=== PATIENT | male | born 1975 | race Caucasian/White ===

== ENCOUNTER 2017-04-20 14:23 | Emergency (ER) | payer SELFPAY ==
[2017-04-20] MEDS ORDERED: DEXAMETHASONE 10 MG/ML VIAL PO STA (14:52)
[2017-04-20] MEDS ORDERED: LIDOCAINE PATCH 5% TOP STA (14:52)
[2017-04-20] MEDS ORDERED: traMADol 50 MG TABLET PO STA (14:53)
[2017-04-20] MEDS ORDERED: traMADol 50 MG TABLET PO ONE (15:05)
[2017-04-20] MEDS ORDERED: DEXAMETHASONE 10 MG/ML VIAL ONE (15:05)
[2017-04-20] MEDS ORDERED: LIDOCAINE PATCH 5% TOP ONE (15:06)
[2017-04-20] MEDS ORDERED: CHERRY SYRUP 10 ML UDC PO ONE (15:06)
--- NOTE | 2017-04-20 15:25 | ED Physician Documentation ---
History of Present Illness - Stated complaint Stated Complaint: LOW BACK PX/ FINGERS & TOES TINGLING - Chief complaint Chief Complaint: Back Pain - Additonal information Additional information: hx from pt 41 male hx [id number] fusion and disk surgery has done well for may years working without pain etc recently inc low back pain and today tingle to the tips of all his fingers and toes no fever, no IVDA, no recent surgery or dental work no injury no head or neck pain, just low lumbar no abd pain no urinary or stool incont Review of Systems Constitutional: denies: Fever Cardiac: denies: Chest pain / pressure Respiratory: denies: Dyspnea GI: denies: Abdominal Pain : denies: Incontinent Musculoskeletal: reports: Back pain. denies: Neck pain Neurologic: denies: Focal weakness, Numbness (just tingling), Head injury Endocrine: denies: Easy bruising / bleeding Immunocompromised: denies: Immunocompromised PD PAST MEDICAL HISTORY - Past Medical History Past Medical History: No - Past Surgical History Past Surgical History: Yes Ortho: Spine surgery - Present Medications Home Medications: Ambulatory Orders Medication Instructions Recorded Confirmed Cyclobenzaprine [Flexeril] 10 mg PO TID PRN #20 tablet 04/20/17 Lidocaine Patch 5% [Lidoderm Patch] 1 each TOP DAILY PRN #10 patch 04/20/17 predniSONE [Deltasone] 40 mg PO DAILY 3 Days 04/20/17 - Allergies Allergies/Adverse Reactions: Allergies Allergy/AdvReac Type Severity Reaction Status Date / Time No Known Drug Allergies Allergy Verified 04/20/17 14:32 - Social History Does the pt smoke?: Yes Smoking Status: Current every day smoker Does the pt drink ETOH?: Yes Does the pt have substance abuse?: No - Immunizations Immunizations are current?: Yes - POLST Patient has POLST: No PD ED PE NORMAL - Vitals Vital signs reviewed: Yes - Neck Neck: Supple, no meningeal sign - Cardiac Cardiac: RRR - Respiratory Respiratory: No respiratory distress - Abdomen Abdomen: Soft, Non tender, Other (no pulsatile mass) - Back Back: No spinal TTP (large midline lumbar scar well healed, no focal redness or swelling or TTP, diffusely TTP) - Neuro Neuro: Other (nl sensation to arms and legs except tips of fingers and toes, denies saddle anesthsia, shoulder ABD, bicep tricep restaurant general manager, finger ABD wrist ext, OK and thumbs up all 5/5 lanette. Hip flex, knee ext, foot dorsi&plantar flex, great toe ext all 5/5 lanette, patellar DR 1+/4 lanette, no ankle clonus) Results - Vitals Vitals: Vital Signs - 24 hr 04/20/17 14:33 Temperature 36.3 C L Heart Rate 80 Respiratory 16 Rate Blood Pressure 154/92 H O2 Saturation 100 Oxygen O2 Source Room air PD MEDICAL DECISION MAKING - ED course ED course: atypical paresthesia to fingers and toes does not fit with lumbar issues - and pt has no neck pain or injury afebrile, no risk factors for abscess abd s pulsatile mass advised pt will address sx (steroids for paresthesias and lido patches, flexeril , apap for pain) pt has no local back specialist - will refer to spine ortho in [place] for further care Departure - Departure Disposition: 01 Home, Self Care Clinical Impression: Paresthesia Back pain Qualifiers: Back pain location: low back pain Chronicity: acute Back pain laterality: bilateral Sciatica presence: without sciatica Qualified Code(s): M54.5 - Low back pain Instructions: ED Low Back Pain Injury, ED Paraesthesias Follow-Up: [facility] [Provider Group] Prescriptions: predniSONE [Deltasone] 40 mg PO DAILY 3 Days Cyclobenzaprine [Flexeril] 10 mg PO TID PRN #20 tablet PRN Reason: Spasms Lidocaine Patch 5% [Lidoderm Patch] 1 each TOP DAILY PRN #10 patch PRN Reason: Pain Comments: The steroids should help decrease nerve inflammation and ease the tingling in your fingers and toes. For the back pain try the lidocaine patches (applied to the sight of pain for up to 12 hr a day) flexeril (a muscle relaxant) and tylenol Call [facility] or else ask your PMD ( a new one should be assigned to you if your old one left the practice) for a referral to a back specialist Return if worse or new symptoms develop Also please follow up with your PMD to get your blood pressure rechecked Forms: Activity restrictions
[2017-04-20 15:44] VITALS: BP 117/73
== END 2017-04-20 15:42 | disposition home or self-care (01) ==
LOC: ED 14:23
DX: R20.0 Anesthesia of skin (principal); M54.5 Low back pain; F17.200 Nicotine dependence, unspecified, uncomplicated; Z98.1 Arthrodesis status
CPT/HCPCS: 99282; 99283; A9270

== ENCOUNTER 2018-10-07 10:41 | Emergency (ER) | payer BC ==
[2018-10-07 10:47] VITALS: BP 123/71
[2018-10-07] MEDS ORDERED: CLINDAMYCIN 150 MG CAPSULE PO STA (12:14)
[2018-10-07] MEDS ORDERED: HYDROcod/ACETAM 5/325 MG TABLET PO STA (12:14)
--- NOTE | 2018-10-07 12:17 | ED Physician Documentation ---
PD HPI HEENT - Stated complaint Stated Complaint: TOOTH PX - Chief complaint Chief Complaint: Heent - History obtained from History obtained from: Patient - History of Present Illness Timing - onset: Other (He has had an on and off pain from several teeth for years but over the last couple days has more severe pain from the left maxillary premolar with mild facial swelling but no fevers. He has an appointment with a dentist next week, but it has been years since he has seen one.) Review of Systems Constitutional: denies: Fever, Chills Throat: reports: Dental pain / toothache Cardiac: denies: Chest pain / pressure, Palpitations Respiratory: denies: Dyspnea, Cough PD PAST MEDICAL HISTORY - Past Medical History Past Medical History: No - Past Surgical History Past Surgical History: Yes Ortho: Spine surgery - Present Medications Home Medications: Ambulatory Orders Medication Instructions Recorded Confirmed Hydrocodone/Acetaminophen 1 - 2 each PO Q6H PRN #14 tablet 10/07/18 [Hydrocodon-Acetaminophen 5-325] RX: Clindamycin HCl [Clindamycin 300 mg PO Q6H #40 capsule 10/07/18 300MG CAP] - Allergies Allergies/Adverse Reactions: Allergies Allergy/AdvReac Type Severity Reaction Status Date / Time No Known Drug Allergies Allergy Verified 10/07/18 10:47 - Social History Does the pt smoke?: Yes Smoking Status: Current every day smoker Does the pt drink ETOH?: Yes Does the pt have substance abuse?: No - Immunizations Immunizations are current?: Yes - POLST Patient has POLST: No PD ED PE NORMAL - Vitals Vital signs reviewed: Yes - General General: Alert and oriented X 3, No acute distress - HEENT HEENT: Other (He has generally poor dentition. There is actually an open draining abscess sinus above the lateral aspect of a left maxillary premolar which is milkable. There is very mild overlying facial swelling but no trismus or sublingual edema) - Neck Neck: Supple, no meningeal sign, No bony TTP - Neuro Neuro: Alert and oriented X 3, Normal speech Results - Vitals Vitals: Vital Signs - 24 hr 10/07/18 10:44 Temperature 36.4 C L Heart Rate 86 Respiratory 16 Rate Blood Pressure 123/71 O2 Saturation 97 Oxygen O2 Source Room air Departure - Departure Disposition: Home, Self Care Clinical Impression: Dental abscess Condition: Good Record reviewed to determine appropriate education?: Yes Instructions: ED Abscess Dental Prescriptions: RX: Clindamycin HCl [Clindamycin 300MG CAP] 300 mg PO Q6H #40 capsule Hydrocodone/Acetaminophen [Hydrocodon-Acetaminophen 5-325] 1 - 2 each PO Q6H PRN #14 tablet PRN Reason: pain Comments: Follow-up with the dentist as scheduled. Return for new or worsening symptoms. Do not drink or drive while taking narcotic pain medication. Note that many narcotic pain relievers also contain Tylenol/acetaminophen. Please ensure that your total dose of acetaminophen from all sources does not exceed 3 g (3000 mg) per day. You may get constipated while on this medication. Take a stool softener such as Colace twice a day while you are on it. Also add an [id number] laxative such as senna or MiraLAX on any day that you do not have a bowel movement. If you received a narcotic pain medication or sedative while in the emergency department, do not drive for the next 24 hours. Discharge Date/Time: 10/07/18 12:22
== END 2018-10-07 12:22 | disposition home or self-care (01) ==
LOC: ED 10:41
DX: K04.7 Periapical abscess without sinus (principal); F17.200 Nicotine dependence, unspecified, uncomplicated
CPT/HCPCS: 99283; A9270